=== PATIENT | female | born 1945 | race Caucasian/White ===

== ENCOUNTER → 2017-02-01 | Outpatient (CLI) | payer OTHER ==
[~2017-02-01] MED LIST: GLIMEPIRIDE1 MG PO; LO-DOSE ASPIRIN81 M2 PO; METFORMIN HCL500 M4 PO; VASOTEC10 MG PO
== END | disposition home or self-care (01) ==
LOC: AMB 10:09
PROC: 0HB6XZZ Excision of Back Skin, External Approach (ICD-10-PCS; principal; 2017-02-01)
DX: L72.0 Epidermal cyst (principal)
CPT/HCPCS: 88304